=== PATIENT | male | born 1995 | race African-American/Black ===

== ENCOUNTER 2017-11-07 18:47 | Emergency (ER) | payer OTHER ==
[~2017-11-07] VITALS: Ht 175.3 cm; Wt 56.7 kg
[~2017-11-07 18:47] MED LIST: ANUSOL-HC30 GM TP; MOBIC15 MG PO
== END 2017-11-08 00:26 | disposition home or self-care (01) ==
LOC: ER 18:47
DX: K52.9 Noninfective gastroenteritis and colitis, unspecified (principal)

== ENCOUNTER 2024-03-29 07:44 | Emergency (ER) | payer OTHER ==
[~2024-03-29] VITALS: Ht 170.2 cm; Wt 68.0 kg
[2024-03-29] MEDS ORDERED: KETOROLAC TROMETHAMINE 60 MG VIAL IM STA (09:20)
[2024-03-29] MEDS ORDERED: KETOROLAC TROMETHAMINE 60 MG VIAL IM ONE (09:31)
== END 2024-03-29 10:53 | disposition home or self-care (01) ==
LOC: ER 07:45
DX: B34.9 Viral infection, unspecified (principal); Z20.822 Contact with and (suspected) exposure to COVID-19

== ENCOUNTER 2024-07-06 14:08 | Emergency (ER) | payer OTHER ==
[~2024-07-06] VITALS: Ht 170.2 cm; Wt 68.0 kg
[2024-07-06 14:22] VITALS: BP 114/70; O2SAT 97
[2024-07-06] MEDS ORDERED: ACETAMINOPHEN 500 MG GEL..CAP PO ONE ×2 (16:42→16:45)
== END 2024-07-06 18:05 | disposition home or self-care (01) ==
LOC: ER 14:10
DX: J32.9 Chronic sinusitis, unspecified (principal); R51.9 Headache, unspecified; Z20.822 Contact with and (suspected) exposure to COVID-19